=== PATIENT | female | born 1985 | race American Indian/Alaskan Native ===

== ENCOUNTER 2019-03-09 08:47 | Emergency (ER) | payer MEDICAID ==
[2019-03-09 09:02] VITALS: BP 159/101
--- NOTE | 2019-03-09 10:06 | Emergency Department Report ---
ED Abdominal Pain HPI - General Chief Complaint: Abdominal Pain Stated Complaint: ABDOMINAL PAIN Time Seen by Provider: 03/09/19 09:20 Source: patient Mode of arrival: Ambulatory Limitations: No Limitations - History of Present Illness Initial Comments: 33-year-old female presents ED complaining of left-sided flank pain with abdominal pain 2 days patient also admits frequent urination and urinary urgency. Patient admits nausea but diarrhea and one episode of vomiting. She denies fever/chills/chest pain/shortness of breath Patient is unsure about her last menstrual period. MD Complaint: abdominal pain, flank pain -: Gradual, days(s) (2) Radiation: none Migration to: no migration, L flank Quality: cramping, aching Consistency: intermittent Associated Symptoms: nausea, vomiting, diarrhea, chills - Related Data Previous Rx's Medication Instructions Recorded Last Taken Type Dicyclomine [Bentyl] 20 mg PO BID #20 tablet 03/09/19 Unknown Rx Ondansetron (Nf) [Zofran TAB] 8 mg PO Q8HR PRN #30 tablet 03/09/19 Unknown Rx Allergies Allergy/AdvReac Type Severity Reaction Status Date / Time No Known Allergies Allergy Unverified 03/09/19 08:48 ED Review of Systems ROS: Stated complaint: ABDOMINAL PAIN Other details as noted in HPI Comment: All other systems reviewed and negative ED Past Medical Hx - Past Medical History Previous Medical History?: No Additional medical history: BLOOD CLOTS - Surgical History Additional Surgical History: HERNIA C SECTION - Social History Smoking Status: Never Smoker Substance Use Type: None - Medications Home Medications: Home Medications Medication Instructions Recorded Confirmed Last Taken Type Dicyclomine [Bentyl] 20 mg PO BID #20 tablet 03/09/19 Unknown Rx Ondansetron (Nf) [Zofran TAB] 8 mg PO Q8HR PRN #30 tablet 03/09/19 Unknown Rx ED Physical Exam - General Limitations: No Limitations General appearance: alert, in no apparent distress - Head Head exam: Present: atraumatic, normocephalic - Eye Eye exam: Present: normal appearance - ENT ENT exam: Present: mucous membranes moist - Neck Neck exam: Present: normal inspection - Respiratory Respiratory exam: Present: normal lung sounds bilaterally. Absent: respiratory distress - Cardiovascular Cardiovascular Exam: Present: regular rate, normal rhythm. Absent: systolic murmur, diastolic murmur, rubs, gallop - GI/Abdominal GI/Abdominal exam: Present: soft, tenderness (palpation), normal bowel sounds. Absent: distended, guarding, rebound, rigid - Extremities Exam Extremities exam: Present: normal inspection - Back Exam Back exam: Present: normal inspection, full ROM. Absent: tenderness, CVA tenderness (R), CVA tenderness (L) - Neurological Exam Neurological exam: Present: alert, oriented X3 - Psychiatric Psychiatric exam: Present: normal affect, normal mood - Skin Skin exam: Present: warm, dry, intact, normal color. Absent: rash ED Course Vital Signs 03/09/19 09:00 Temperature 97.6 F Pulse Rate 75 Respiratory 16 Rate Blood Pressure 159/101 [Left] O2 Sat by Pulse 100 Oximetry ED Medical Decision Making - Lab Data Result diagrams: 03/09/19 09:52 03/09/19 09:52 - Radiology Data Radiology results: report reviewed, image reviewed FINDINGS: CT ABDOMEN: Lung Bases: Clear. Liver: No significant abnormality. Biliary: A 3 mm calcified gallstone is identified. The gallbladder is not distended but there appears to be mild diffuse gallbladder wall thickening. The common bile duct and intrahepatic ducts are unremarkable. Spleen: No significant abnormality. Unenlarged. Pancreas: No significant abnormality. Adrenals: No significant abnormality. Kidneys: No significant abnormality. Lymphatics: No lymphadenopathy. Vasculature: No significant abnormality. Bowel/Peritoneum: No significant abnormality. No free air. No free fluid. The appendix is not confidently identified. CT PELVIS: : A 2.6 x 1.9 cm right ovarian cyst is identified. The left ovary is unremarkable. The uterus is anteverted. IUD is in place. There are 2 densities within the vaginal canal measuring up to 2 cm. The etiology of these are unclear. Osseous Structures: No significant abnormality. Additional Findings: None IMPRESSION: Cholelithiasis. No convincing findings of acute cholecystitis. Right ovarian cyst. Densities within the vaginal canal of uncertain significance. No acute inflammatory process is identified. Signer Name: Lester Alba Jr, MD Signed: 03/09/2019 11:54 AM Workstation Name: [id number] Transcribed By: TTR Dictated By: LESTER ALBA JR, MD Electronically Authenticated By: LESTER ALBA JR, MD Signed Date/Time: 03/09/19 1 - Medical Decision Making 33-year-old female presents with cholelithiasis without any evidence of cholecystitis CBC, CMP, urinalysis were all obtained. There is no signs of leukocytosis or any other abnormalities. CT scan of the abdomen and pelvis was obtained C reported above. Discussed findings with the patient. Discussed the patient follow up with a viscera washer's referred. Vital signs are normal patient is in no acute distress at this time patient will be discharged on pain control and nausea medication. Critical care attestation.: If time is entered above; I have spent that time in minutes in the direct care of this critically ill patient, excluding procedure time. ED Disposition Clinical Impression: Cholelithiases Disposition: - TO HOME OR SELFCARE Is pt being admited?: No Does the pt Need Aspirin: No Condition: Stable Instructions: Abdominal Pain (ED), Cholelithiasis (ED), Biliary Colic (ED) Additional Instructions: Make sure to follow up with the primary care physician as discussed. Take all your medications as you've been prescribed. If you have any worsening symptoms or develop new symptoms please return to ED immediately. Prescriptions: Dicyclomine [Bentyl] 20 mg PO BID #20 tablet Ondansetron (Nf) [Zofran TAB] 8 mg PO Q8HR PRN #30 tablet PRN Reason: Nausea Referrals: MALDONADO DE PAZ MD [Primary Care Provider] - 3-5 Days [facility] [Provider Group] - 3-5 Days [facility] [Provider Group] - 3-5 Days Forms: Accompanied Note, Work/School Release Form(ED) Time of Disposition: 13:07
[2019-03-09 10:13] LABS: Basophils % (Auto) 0.5 % (0.0-1.8); Eosinophils # (Auto) 0.1 K/mm3 (0.0-0.4); Eosinophils % (Auto) 1.4 % (0.0-4.3); Hematocrit 41.2 % (30.3-42.9); Hemoglobin 13.5 gm/dl (10.1-14.3); Lymphocytes # (Auto) 2.2 K/mm3 (1.2-5.4); Lymphocytes % (Auto) 32.2 % (13.4-35.0); Mean Corpuscular HGB Conc 33 % (30-34); Mean Corpuscular Hemoglobin 27 pg (28-32); Mean Corpuscular Volume 81 fl (79-97); Monocytes # (Auto) 0.6 K/mm3 (0.0-0.8); Monocytes % (Auto) 8.5 % (0.0-7.3); Platelet Count 268 K/mm3 (140-440); Red Blood Count 5.07 M/mm3 (3.65-5.03); Red Cell Distribution Width 16.1 % (13.2-15.2)
[2019-03-09 10:14] LABS: Bilirubin,Urine NEG (Negative); Blood,Urine LG (Negative); Color,Urine Yellow (Yellow); Mucus,Urine 3+ /HPF
[2019-03-09 10:15] LABS: RBC,Urine > 182.0 /HPF (0.0-6.0)
[2019-03-09 10:29] LABS: BUN/Creatinine Ratio 24; Blood Urea Nitrogen 12 mg/dL (7-17); Calcium 9.1 mg/dL (8.4-10.2); Hemolysis Index 16
[2019-03-09] MEDS ORDERED: ZOFRAN ODT PO ONE (10:51)
[2019-03-09] MEDS ORDERED: TORADOL IM ONE (10:52)
[2019-03-09] MEDS ORDERED: BENTYL PO ONE (11:51)
--- NOTE | 2019-03-09 11:58 | Cat Scan Report ---
CT ABDOMEN AND PELVIS WITHOUT CONTRAST HISTORY: Left-sided abdominal pain for 2 days COMPARISON: None. TECHNIQUE: Axial CT images were obtained through the abdomen and pelvis without IV contrast. Sagittal and coronal reformatted images. All CT scans at this location are performed using CT dose reduction for ALARA by means of automated exposure control. FINDINGS: CT ABDOMEN: Lung Bases: Clear. Liver: No significant abnormality. Biliary: A 3 mm calcified gallstone is identified. The gallbladder is not distended but there appears to be mild diffuse gallbladder wall thickening. The common bile duct and intrahepatic ducts are unre markable. Spleen: No significant abnormality. Unenlarged. Pancreas: No significant abnormality. Adrenals: No significant abnormality. Kidneys: No significant abnormality. Lymphatics: No lymphadenopathy. Vasculature: No significant abnormality. Bowel/Peritoneum: No significant abnormality. No free air. No free fluid. The appendix is not confide ntly identified. CT PELVIS: : A 2.6 x 1.9 cm right ovarian cyst is identified. The left ovary is unremarkable. The uterus is an teverted. IUD is in place. There are 2 densities within the vaginal canal measuring up to 2 cm. The e tiology of these are unclear. Osseous Structures: No significant abnormality. Additional Findings: None IMPRESSION: Cholelithiasis. No convincing findings of acute cholecystitis. Right ovarian cyst. Densities within the vaginal canal of uncertain significance. No acute inflammatory process is identified. Signer Name: Lester Brennan Jr, MD Signed: 03/09/2019 11:54 AM Workstation Name: [id number]
== END 2019-03-09 13:30 | disposition home or self-care (01) ==
LOC: ED 08:47
DX: K80.20 Calculus of gallbladder without cholecystitis without obstruction (principal); Z98.890 Other specified postprocedural states
CPT/HCPCS: 36415; 74176; 80048; 81001; 83690; 84703; 85025; 87086; 96372; 99284; J1885; Q0162

== ENCOUNTER 2019-03-20 21:58 | Emergency (ER) | payer MEDICAID ==
[2019-03-20 22:04] VITALS: BP 145/95
--- NOTE | 2019-03-20 22:04 | Event Note ---
ED Screening Note Date of service: 03/20/19 Time: 22:03 ED Screening Note: 33 y o female presents with left sided flank pain admits pain with urine and increased menstrual bleed This initial assessment/diagnostic orders/clinical plan/treatment(s) is/are subject to change based on patients health status, clinical progression and re- assessment by fellow clinical providers in the ED. Further treatment and workup at subsequent clinical providers discretion. Patient/guardian urged not to elope from the ED as their condition may be serious if not clinically assessed and managed. Initial orders include:
[2019-03-20 22:57] LABS: Basophils % (Auto) 0.5 % (0.0-1.8); Eosinophils # (Auto) 0.2 K/mm3 (0.0-0.4); Eosinophils % (Auto) 2.3 % (0.0-4.3); Hematocrit 42.6 % (30.3-42.9); Hemoglobin 13.9 gm/dl (10.1-14.3); Lymphocytes % (Auto) 41.1 % (13.4-35.0); Mean Corpuscular HGB Conc 33 % (30-34); Mean Corpuscular Volume 83 fl (79-97); Monocytes # (Auto) 0.6 K/mm3 (0.0-0.8); Platelet Count 280 K/mm3 (140-440); Red Blood Count 5.13 M/mm3 (3.65-5.03); Red Cell Distribution Width 15.8 % (13.2-15.2)
[2019-03-20 23:06] LABS: BUN/Creatinine Ratio 20; Blood Urea Nitrogen 12 mg/dL (7-17); Calcium 9.1 mg/dL (8.4-10.2); Hemolysis Index 4
[2019-03-21 01:17] LABS: Bilirubin,Urine NEG (Negative); Blood,Urine LG (Negative); Color,Urine Amber (Yellow); Mucus,Urine 3+ /HPF; Protein,Urine <15 mg/dL mg/dL (Negative)
[2019-03-21] MEDS ORDERED: IBUPROFEN PO ONE (02:05)
[2019-03-21] MEDS ORDERED: NORCO 10/325 PO ONE (02:05)
[2019-03-21] MEDS ORDERED: NORCO 10/325 ONE (02:06)
[2019-03-21] MEDS ORDERED: IBUPROFEN ONE (02:06)
--- NOTE | 2019-03-21 02:26 | Ultrasound Report ---
US abdomen limited INDICATION / CLINICAL INFORMATION: ruq pain. COMPARISON: None available. FINDINGS: Multiple stones are seen in the gallbladder. The gallbladder wall is not thickened. Common bile duct is normal measuring 4 mm. The liver, right kidney and aorta are normal in appearance. The left kidney and spleen were not examined. The pancreas is not well visualized. IMPRESSION: Cholelithiasis, otherwise negative limited abdominal ultrasound Signer Name: Harpal Isbell MD FACR Signed: 03/21/2019 2:21 AM Workstation Name: [id number]
[2019-03-21] MEDS ORDERED: TORADOL IV ONE (02:53)
[2019-03-21] MEDS ORDERED: NACL 0.9% 1000 ML 1,000 ML IV ONE (02:53)
== END 2019-03-21 04:57 | disposition home or self-care (01) ==
LOC: ED 21:58
DX: R10.9 Unspecified abdominal pain (principal); R30.0 Dysuria; Z98.890 Other specified postprocedural states; Z53.21 Procedure and treatment not carried out due to patient leaving prior to being seen by health care provider
CPT/HCPCS: 36415; 76705; 80048; 81001; 84703; 85025; 87086; 96374; 99284; J1885; J7030